=== PATIENT | female | born 1980 | race Caucasian/White ===

== ENCOUNTER 2016-04-12 22:02 | Emergency (ER) | payer OTHER ==
[2016-04-12] MEDS ORDERED: ZOFRAN ODT PO ONE (22:44)
[2016-04-12] MEDS ORDERED: TORADOL IM ONE (22:44)
[2016-04-13] MEDS ORDERED: NORCO 5/325 PO ONE (02:00)
[2016-04-13 02:25] VITALS: BP 127/67
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
== END 2016-04-13 03:23 | disposition home or self-care (01) ==
LOC: ED 22:02
DX: S20.221A Contusion of right back wall of thorax, initial encounter (principal); V49.9XXA Car occupant (driver) (passenger) injured in unspecified traffic accident, initial encounter; Y93.89 Activity, other specified; Y99.9 Unspecified external cause status; Y92.410 Unspecified street and highway as the place of occurrence of the external cause
CPT/HCPCS: 71101; 96372; 99284; J1885; Q0162

== ENCOUNTER 2017-12-19 17:13 | Outpatient (CLI) | payer SELFPAY ==
[2017-12-19 19:20] VITALS: BP 119/71
== END 2017-12-19 20:00 | disposition home or self-care (01) ==
LOC: TRG 17:13
PROVIDERS: ATTEND Obstetrics & Gynecology Obstetrics
DX: O47.1 False labor at or after 37 completed weeks of gestation (principal); Z3A.40 40 weeks gestation of pregnancy
CPT/HCPCS: 59025